=== PATIENT | male | born 1955 | race Caucasian/White ===

== ENCOUNTER 2019-06-24 15:57 | Inpatient (IN) | payer BC ==
[2019-06-24 17:33] LABS: ABSOLUTE BASOPHILS # (AUTO) 0.1 10^3/uL (0.0-0.2); ABSOLUTE LYMPHOCYTES (AUTO) 2.2 10^3/uL (0.5-4.7); ABSOLUTE MONOCYTES (AUTO) 1.2 10^3/uL (0.1-1.4); ABSOLUTE NEUT (AUTO) 14.8 10^3/uL (1.7-8.2); BASOPHILS % (AUTO) 0.3 % (0-2); EOSINOPHILS % (AUTO) 0.2 % (0-6); HEMATOCRIT 33.1 % (37.9-51.0); HEMOGLOBIN 11.3 g/dL (13.5-17.0); LYMPHOCYTES % (AUTO) 11.8 % (13-45); MEAN CORPUSCULAR HEMOGLOBIN 30.6 pg (27.0-33.4); MEAN CORPUSCULAR HGB CONC 34.1 g/dL (32.0-36.0); MEAN CORPUSCULAR VOLUME 90 fl (80-97); MONOCYTES % (AUTO) 6.7 % (3-13); PLATELET COUNT 206 10^3/uL (150-450); RED BLOOD COUNT 3.68 10^6/uL (4.35-5.55); RED CELL DISTRIBUTION WIDTH 14.2 % (11.5-14.0); TOTAL CELLS COUNTED % (AUTO) 100 %; WHITE BLOOD COUNT 18.3 10^3/uL (4.0-10.5)
[2019-06-24 17:34] LABS: VENOUS BLOOD BASE EXCESS -1.4 mmol/L; VENOUS BLOOD HCO3 20.4 mmol/L (20-32); VENOUS BLOOD PCO2 29.6 mmHg (35-63); VENOUS BLOOD PH 7.46 (7.30-7.42)
[2019-06-24 17:39] LABS: PROTHROMBIN TIME 16.3 SEC (11.4-15.4)
[2019-06-24 17:57] LABS: ALBUMIN 3.6 g/dL (3.5-5.0); ALKALINE PHOSPHATASE 97 U/L (38-126); ANION GAP 10 (5-19); ASPARTATE AMINO TRANSFERASE 21 U/L (17-59); BILIRUBIN,DIRECT 0.3 mg/dL (0.0-0.4); BILIRUBIN,TOTAL 2.1 mg/dL (0.2-1.3); BLOOD UREA NITROGEN 9 mg/dL (7-20); CARBON DIOXIDE 22 mmol/L (22-30); CHLORIDE 98 mmol/L (98-107); GLUCOSE 196 mg/dL (75-110); POTASSIUM 4.1 mmol/L (3.6-5.0); TOTAL PROTEIN 6.8 g/dL (6.3-8.2)
--- NOTE | 2019-06-24 18:50 | ER Document Report ---
ED General - General Chief Complaint: Urinary Problem Stated Complaint: URINARY PROBLEM Time Seen by Provider: 06/24/19 18:39 TRAVEL OUTSIDE OF THE [place] IN LAST 30 DAYS: No - HPI Notes: Patient presents with 3 days of burning with urination and developed fever. He went to his primary care doctor Dr. Vivas and was told to come to the emergency department. Denies any chest pain cough congestion abdominal pain or flank pain at this time. Denies any testicular pain. He is on Eliquis for A. fib - Related Data Allergies/Adverse Reactions: Penicillins Allergy (Unknown, Verified 05/25/18 07:47) Past Medical History - Social History Smoking Status: Unknown if Ever Smoked Family History: Reviewed & Not Pertinent - Past Medical History Cardiac Medical History: Denies: Hx Coronary Artery Disease, Hx Heart Attack, Hx Hypertension Pulmonary Medical History: Reports: Hx COPD Denies: Hx Asthma, Hx Bronchitis, Hx Pneumonia, Hx Tuberculosis Neurological Medical History: Denies: Hx Cerebrovascular Accident, Hx Seizures GI Medical History: Reports: Hx Gastroesophageal Reflux Disease, Hx Hiatal Hernia Musculoskeletal Medical History: Reports Hx Arthritis Psychiatric Medical History: Reports: Hx Depression Past Surgical History: Denies: Hx Appendectomy, Hx Bowel Surgery, Hx Cholecystectomy, Hx Coronary Artery Bypass Graft, Hx Gastric Bypass Surgery, Hx Herniorrhaphy, Hx Pacemaker, Hx Tonsillectomy - Immunizations Hx Diphtheria, Pertussis, Tetanus Vaccination: No Review of Systems - Review of Systems Constitutional: No symptoms reported EENT: No symptoms reported Cardiovascular: No symptoms reported Respiratory: No symptoms reported Gastrointestinal: No symptoms reported Genitourinary: See HPI Male Genitourinary: No symptoms reported Musculoskeletal: No symptoms reported Skin: No symptoms reported Hematologic/Lymphatic: No symptoms reported Neurological/Psychological: No symptoms reported Physical Exam - Vital signs Vitals: Resp 06/24/19 17:10 - General General appearance: Appears well, Alert - HEENT Head: Normocephalic, Atraumatic - Respiratory Respiratory status: No respiratory distress Chest status: Nontender Breath sounds: Normal Chest palpation: Normal - Cardiovascular Rhythm: Irregularly irregular, Tachycardia Heart sounds: Normal auscultation Murmur: No - Abdominal Inspection: Normal Distension: No distension Bowel sounds: Normal Tenderness: Nontender - Back Back: Normal. No: CVA tenderness - Extremities General upper extremity: Normal inspection, Normal ROM General lower extremity: Normal inspection, Normal ROM Course - Re-evaluation Re-evalutation: 06/24/19 19:44 Patient found to have urine indicative of urinary tract infection that combined with leukocytosis and fever patient has pyelonephritis ceftriaxone started in the emergency department due to his history of A. fib in rapid heart rate in the emergency department will be admitted for observation - Vital Signs Vital signs: Temp Pulse Resp BP Pulse Ox 99.4 F 20 125/83 95 06/24/19 17:16 06/24/19 18:01 06/24/19 19:01 06/24/19 19:01 - Laboratory Result Diagrams: 06/24/19 17:00 06/24/19 17:00 Laboratory results interpreted by me: 06/24/19 06/24/19 06/24/19 17:00 17:00 17:00 WBC 18.3 H RBC 3.68 L Hgb 11.3 L Hct 33.1 L RDW 14.2 H Lymph % (Auto) 11.8 L Absolute Neuts (auto) 14.8 H Seg Neutrophils % 81.0 H PT 16.3 H VBG pH VBG pCO2 Sodium 130.0 L Glucose 196 H Total Bilirubin 2.1 H Urine Blood Urine Urobilinogen Ur Leukocyte Esterase 06/24/19 06/24/19 17:00 18:50 WBC RBC Hgb Hct RDW Lymph % (Auto) Absolute Neuts (auto) Seg Neutrophils % PT VBG pH 7.46 H VBG pCO2 29.6 L Sodium Glucose Total Bilirubin Urine Blood MODERATE H Urine Urobilinogen 2.0 H Ur Leukocyte Esterase LARGE H Discharge - Discharge Clinical Impression: Pyelonephritis Condition: Good Disposition: ADMITTED OBSERVATION Admitting Provider: Jenifer (Hospitalist) Unit Admitted: Telemetry
[2019-06-24] MEDS ORDERED: ACETAMINOPHEN 325 MG TABLET PO ONE (18:51)
[2019-06-24 19:14] LABS: APPEARANCE,URINE SLIGHTLY-CLOUDY; BILIRUBIN,URINE NEGATIVE (NEGATIVE); COLOR,URINE YELLOW; GLUCOSE, URINE NEGATIVE (NEGATIVE); KETONES,URINE NEGATIVE (NEGATIVE); LEUKOCYTE ESTERASE,URINE LARGE (NEGATIVE); NITRITE,URINE NEGATIVE (NEGATIVE); PROTEIN,URINE NEGATIVE (NEGATIVE); URINE SPECIFIC GRAVITY 1.008
[2019-06-24] MEDS ORDERED: CEFTRIAXONE 1 GM/D5W RTU 1 GM/50 ML RTUPB IV ONE (20:30)
[2019-06-24] MEDS ORDERED: MAG HYDROX/AL HYDROX/SIMETH SUSP 30 ML UDCUP PO PRN (20:40)
[2019-06-24] MEDS ORDERED: ZOLPIDEM TARTRATE 5 MG TABLET PO PRN (20:40)
[2019-06-24] MEDS ORDERED: LEVALBUTEROL HCL NEB 0.63 MG/3 ML AMPUL NEB PRN (20:40)
[2019-06-24] MEDS ORDERED: ONDANSETRON HCL INJ/PF 4 MG/2 ML SDV IV PRN (20:40)
[2019-06-24] MEDS ORDERED: MAGNESIUM HYDROXIDE SUSP 30 ML UDCUP PO PRN (20:40)
[2019-06-24] MEDS ORDERED: NALBUPHINE HCL INJ 10 MG/1 ML AMPULE IV PRN ×3 (20:44→20:48)
--- NOTE | 2019-06-24 23:13 | EKG REPORT ---
SEVERITY:- ABNORMAL ECG - ATRIAL FIBRILLATION, V-RATE 95-150 BORDERLINE PROLONGED QT INTERVAL : Confirmed by: Niranjan Alicea MD 24-Jun-2019 23:13:00
[2019-06-24] MEDS: RINGERS SOLUTION,LACTATED 1,000 ML IV PRN (23:42)
[2019-06-24] MEDS ORDERED: METOPROLOL TARTRATE 25 MG TABLET PO ONE (23:45)
[2019-06-24] MEDS ORDERED: METOPROLOL TARTRATE 25 MG TABLET ONE (23:54)
[2019-06-24] MEDS: ACETAMINOPHEN 325 MG TABLET PO PRN (23:56)
[2019-06-25] MEDS: LEVALBUTEROL HCL NEB 1.25 MG/3 ML AMPUL NEB SCH ×3 (00:01→15:43)
[2019-06-25] MEDS: IPRATROPIUM BROMIDE 0.02% NEB 0.5 MG/2.5 ML AMPUL NEB SCH ×3 (00:01→15:43)
[2019-06-25] MEDS ORDERED: METOPROLOL TARTRATE 25 MG TABLET ONE (03:21)
[2019-06-25] MEDS: RINGERS SOLUTION,LACTATED 1,000 ML IV PRN (03:36)
--- NOTE | 2019-06-25 03:46 | PDOC H&P ---
History of Present Illness Admission Date/PCP: 06/24/19 19:55 ANKIT ATKINS MD Patient complains of: Dysuria History of Present Illness: JEWEL BAIN is a 63 year old male who presented to the emergency room with a 3- day history of dysuria. He admits having burning with urination associated with urinary urgency and frequency for the last 3 days and acknowledges that today he developed an accompanying subjective fever with chills. He saw his primary care provider Dr. Cory Atkins today for evaluation and was sent to the emergency room for treatment. He denies other associated or accompanying signs and symptoms. He denies prior similar episodes. He has not identified any aggravating or ameliorating factors for his dysuria. In the emergency room he was found to have pyuria with an elevated white blood count of 18,300 and a mild tachycardia with a temperature of 99.4 F. He was given an initial dose of Rocephin 1 g IV in the emergency room and blood and urine cultures are currently pending. Patient was subsequently admitted to the hospital for further evaluation and treatment. Past Medical History Cardiac Medical History: Reports: Atrial Fibrillation Denies: Coronary Artery Disease, Myocardial Infarction, Hypertension Pulmonary Medical History: Reports: Chronic Obstructive Pulmonary Disease (COPD) Denies: Asthma, Bronchitis, Pneumonia, Tuberculosis EENT Medical History: Denies: Cataracts, Ears - Hearing aids Neurological Medical History: Denies: Hemorrhagic CVA, Ischemic CVA, Seizures Endocrine Medical History: Reports: Obesity Denies: Diabetes Mellitus Type 1, Diabetes Mellitus Type 2, Hyperthyroidism, Hypothyroidism Renal/ Medical History: Denies: Chronic Kidney Disease, Nephrolithiasis Malignancy Medical History: Reports: None GI Medical History: Reports: Gastroesophageal Reflux Disease, Hiatal Hernia Denies: Cirrhosis, Hepatitis Musculoskeltal Medical History: Reports: Arthritis Denies: Gout Skin Medical History: Denies: Eczema, Psoriasis Psychiatric Medical History: Reports: Depression, Substance Abuse Denies: Alcohol Dependency, Tobacco Dependency Traumatic Medical History: Reports: None Hematology: Reports: Anemia Denies: Bleeding Tendencies Infectious Medical History: Reports: None Past Surgical History Past Surgical History: Reports: None Social History Information Source: Patient Lives with: Alone Smoking Status: Former Smoker Electronic Cigarette use?: No Frequency of Alcohol Use: Occasional Hx Recreational Drug Use: Yes Drugs: Cocaine, Marijuana Hx Prescription Drug Abuse: No - Advance Directive Resuscitation Status: Full Code Surrogate healthcare decision maker:: Mandie Britton Family History Parental Family History Reviewed: Yes Children Family History Reviewed: No Sibling(s) Family History Reviewed.: Yes Medication/Allergy Home Medications: Apixaban [Eliquis 5 mg Tablet] 5 mg PO Q12 06/24/19 Esomeprazole Magnesium 40 mg PO DAILY 06/24/19 Lisinopril [Prinivil 2.5 mg Tablet] 2.5 mg PO DAILY 06/24/19 Metoprolol Tartrate [Lopressor 25 mg Tablet] 25 mg PO Q12 06/24/19 Tamsulosin HCl [Flomax 0.4 mg Cap.sr] 0.4 mg PO QPM 06/24/19 Umeclidinium Brm/Vilanterol Tr [Anoro Ellipta 62.5-25 Mcg INH] 1 puff IH DAILY 06/24/19 Allergies/Adverse Reactions: Penicillins Allergy (Unknown, Verified 05/25/18 07:47) Review of Systems Constitutional: PRESENT: as per HPI, chills, fever(s) Eyes: ABSENT: visual disturbances, other - Eye pain Ears: ABSENT: hearing changes, other - Ear pain Nose, Mouth, and Throat: ABSENT: mouth pain, sore throat Cardiovascular: ABSENT: chest pain, palpitations Respiratory: ABSENT: cough, dyspnea Gastrointestinal: ABSENT: abdominal pain, constipation, diarrhea, nausea, vomiting Genitourinary: PRESENT: as per HPI, dysuria, other - Urinary frequency and urgency. ABSENT: hematuria Musculoskeletal: ABSENT: back pain, joint swelling, muscle weakness Integumentary: ABSENT: pruritus, rash Neurological: ABSENT: confusion, convulsions, focal weakness, memory loss, syncope Psychiatric: ABSENT: anxiety, depression Endocrine: ABSENT: cold intolerance, heat intolerance Hematologic/Lymphatic: ABSENT: easy bleeding, easy bruising Allergic/Immunologic: ABSENT: seasonal rhinorrhea Physical Exam Vital Signs: Temp Pulse Resp BP Pulse Ox 99.4 F 20 125/83 95 06/24/19 17:16 06/24/19 18:01 06/24/19 19:01 06/24/19 19:01 Intake & Output 06/22/19 06/23/19 06/24/19 23:59 23:59 23:59 Weight 113.852 kg General appearance: PRESENT: no acute distress, cooperative, obese Head exam: PRESENT: atraumatic, normocephalic Eye exam: PRESENT: conjunctiva pink. ABSENT: conjunctival injection, scleral icterus Ear exam: PRESENT: normal external ear exam. ABSENT: bleeding, drainage Mouth exam: PRESENT: dry mucosa, neck supple Neck exam: ABSENT: thyromegaly, tracheal deviation Respiratory exam: PRESENT: clear to auscultation evelyn, symmetrical, unlabored Cardiovascular exam: PRESENT: irregular rhythm - Irregularly irregular rate and rhythm. ABSENT: clicks, gallop, rubs Pulses: PRESENT: normal radial pulses, normal dorsalis pedis pul Vascular exam: PRESENT: normal capillary refill. ABSENT: pallor GI/Abdominal exam: PRESENT: normal bowel sounds, soft Rectal exam: PRESENT: deferred Extremities exam: ABSENT: joint swelling, pedal edema Musculoskeletal exam: PRESENT: full ROM, normal inspection Neurological exam: PRESENT: alert, oriented to person, oriented to place, oriented to time, oriented to situation, CN II-XII grossly intact. ABSENT: motor sensory deficit Psychiatric exam: PRESENT: appropriate affect, normal mood Skin exam: PRESENT: dry, intact, warm. ABSENT: jaundice, rash, urticaria Results Laboratory Results: 06/24/19 17:00 06/24/19 17:00 06/24/19 06/24/19 06/24/19 17:00 17:00 17:00 WBC 18.3 H RBC 3.68 L Hgb 11.3 L Hct 33.1 L MCV 90 MCH 30.6 MCHC 34.1 RDW 14.2 H Plt Count 206 Seg Neutrophils % 81.0 H VBG pH VBG pCO2 VBG HCO3 VBG Base Excess Sodium 130.0 L Potassium 4.1 Chloride 98 Carbon Dioxide 22 Anion Gap 10 BUN 9 Creatinine 0.71 Est GFR ( Amer) > 60 Glucose 196 H Lactic Acid 2.0 Calcium 9.0 Total Bilirubin 2.1 H AST 21 Alkaline Phosphatase 97 Total Protein 6.8 Albumin 3.6 Urine Color Urine Appearance Urine pH Ur Specific [place] Urine Protein Urine Glucose (UA) Urine Ketones Urine Blood Urine Nitrite Ur Leukocyte Esterase Urine WBC (Auto) Urine RBC (Auto) 06/24/19 06/24/19 17:00 18:50 WBC RBC Hgb Hct MCV MCH MCHC RDW Plt Count Seg Neutrophils % VBG pH 7.46 H VBG pCO2 29.6 L VBG HCO3 20.4 VBG Base Excess -1.4 Sodium Potassium Chloride Carbon Dioxide Anion Gap BUN Creatinine Est GFR ( Amer) Glucose Lactic Acid Calcium Total Bilirubin AST Alkaline Phosphatase Total Protein Albumin Urine Color YELLOW Urine Appearance SLIGHTLY-CLOUDY Urine pH 6.0 Ur Specific [place] 1.008 Urine Protein NEGATIVE Urine Glucose (UA) NEGATIVE Urine Ketones NEGATIVE Urine Blood MODERATE H Urine Nitrite NEGATIVE Ur Leukocyte Esterase LARGE H Urine WBC (Auto) 64 Urine RBC (Auto) 2 Assessment and Plan - Diagnosis (1) Urinary tract infection Qualifiers: Urinary tract infection type: site unspecified Hematuria presence: without hematuria Qualified Code(s): N39.0 - Urinary tract infection, site not specified Is this a current diagnosis for this admission?: Yes (2) Dysuria Is this a current diagnosis for this admission?: Yes (3) Fever and chills Is this a current diagnosis for this admission?: Yes (4) Major depression, chronic Is this a current diagnosis for this admission?: Yes (5) Chronic anticoagulation Is this a current diagnosis for this admission?: Yes (6) Chronic atrial fibrillation Is this a current diagnosis for this admission?: Yes - Plan Summary Summary: Patient is admitted to the hospital for IV antibiotic therapy initially with Rocephin 1 g IV daily. Blood and urine cultures are pending at this time. CBCs and metabolic profiles with magnesium levels will be followed as appropriate. Patient will be continued on his usual medications for treatment of his chronic depression, atrial fibrillation and associated stroke risk. His urinary symptoms will be treated with Pyridium and his fever will be treated with Tylenol on an as-needed basis. Any pain he might develop will be treated with Nubain 5 to 10 mg IV every 3 hours on an as-needed basis using a sliding pain scale. - Time Time Spent with patient: 25-34 minutes Medications reviewed and adjusted accordingly: Yes Anticipated discharge: Home - Inpatient Certification Based on my medical assessment, after consideration of the patient's comorbidities, presenting symptoms, or acuity I expect that the services needed warrant INPATIENT care.: Yes I certify that my determination is in accordance with my understanding of [facility]'s requirements for reasonable and necessary INPATIENT services [42 CFR 412.3e].: Yes Medical Necessity: Need Close Monitoring Due to Risk of Patient Decompensation, Need For IV Fluids, Need For Continuous Telemetry Monitoring, Need for IV Antibiotics, Risk of Complication if Not Cared For in Hospital, Risk of Diagnosis Which Will Require Inpatient Eval/Care/Monitoring
[2019-06-25] MEDS ORDERED: METOPROLOL TARTRATE 25 MG TABLET PO ONE (04:00)
[2019-06-25] MEDS ORDERED: PHENAZOPYRIDINE HCL 100 MG TABLET PO ONE (04:00)
[2019-06-25 06:16] LABS: HEMATOCRIT 30.9 % (37.9-51.0); HEMOGLOBIN 10.7 g/dL (13.5-17.0); MEAN CORPUSCULAR HGB CONC 34.5 g/dL (32.0-36.0); MEAN CORPUSCULAR VOLUME 90 fl (80-97); PLATELET COUNT 178 10^3/uL (150-450); RED BLOOD COUNT 3.44 10^6/uL (4.35-5.55); RED CELL DISTRIBUTION WIDTH 14.2 % (11.5-14.0)
[2019-06-25 06:57] LABS: ANION GAP 6 (5-19); BLOOD UREA NITROGEN 11 mg/dL (7-20); CALCIUM 8.7 mg/dL (8.4-10.2); CARBON DIOXIDE 26 mmol/L (22-30); CHLORIDE 99 mmol/L (98-107); GLUCOSE 269 mg/dL (75-110); POTASSIUM 4.3 mmol/L (3.6-5.0)
[2019-06-25] MEDS: BUDESONIDE NEB 0.5 MG/2 ML AMPUL NEB SCH ×2 (07:43→20:02)
[2019-06-25] MEDS: DOCUSATE SODIUM 100 MG CAPSULE PO SCH ×2 (10:21→17:11)
[2019-06-25] MEDS: METOPROLOL TARTRATE 25 MG TABLET PO SCH ×2 (10:21→22:07)
[2019-06-25] MEDS: PANTOPRAZOLE SODIUM 40 MG TABLET.DR PO SCH ×2 (10:21→17:11)
[2019-06-25] MEDS: APIXABAN 5 MG TABLET PO SCH ×2 (10:21→17:11)
[2019-06-25] MEDS: LISINOPRIL 5 MG TABLET PO SCH (10:21)
[2019-06-25] MEDS: CEFTRIAXONE 1 GM/D5W RTU 1 GM/50 ML RTUPB IV SCH (10:22)
--- NOTE | 2019-06-25 12:49 | PDOC PROGRESS REPORT ---
Subjective Progress Note for:: 06/25/19 Subjective:: JEWEL BAIN is a 63 year old male who presented to the emergency room with a 3- day history of dysuria. He admits having burning with urination associated with urinary urgency and frequency for the last 3 days and acknowledges that today he developed an accompanying subjective fever with chills. He saw his primary care provider Dr. Cory Richardson today for evaluation and was sent to the emergency room for treatment. He denies other associated or accompanying signs and symptoms. He denies prior similar episodes. He has not identified any aggravating or ameliorating factors for his dysuria. In the emergency room he was found to have pyuria with an elevated white blood count of 18,300 and a mild tachycardia with a temperature of 99.4 F. He was given an initial dose of Rocephin 1 g IV in the emergency room and blood and urine cultures are currently pending. Patient was subsequently admitted to the hospital for further evaluation and treatment. 06/25/2019. Afebrile, dysuria improved, denies any shortness of breath, chills, nausea, vomiting, diarrhea, constipation. Reason For Visit: URINARY TRACT INFECTION LEUKOCYTOSIS Physical Exam Vital Signs: Temp Pulse Resp BP Pulse Ox 99.5 F 95 16 125/74 94 06/25/19 00:00 06/25/19 07:43 06/25/19 07:43 06/25/19 00:00 06/25/19 07:43 Intake & Output 06/24/19 06/25/19 06/26/19 06:59 06:59 06:59 Intake Total 701 1050 Output Total 1000 Balance -299 1050 Weight 111 kg General appearance: PRESENT: no acute distress, obese, well-developed, well-no urished Head exam: PRESENT: atraumatic, normocephalic Eye exam: PRESENT: conjunctiva pink, EOMI, PERRLA. ABSENT: scleral icterus Ear exam: PRESENT: normal external ear exam Mouth exam: PRESENT: moist, tongue midline Neck exam: ABSENT: carotid bruit, JVD, lymphadenopathy, thyromegaly Respiratory exam: PRESENT: clear to auscultation evelyn. ABSENT: rales, rhonchi, wheezes Cardiovascular exam: PRESENT: RRR. ABSENT: diastolic murmur, rubs, systolic murmur Pulses: PRESENT: normal dorsalis pedis pul Vascular exam: PRESENT: normal capillary refill GI/Abdominal exam: PRESENT: normal bowel sounds, soft. ABSENT: distended, guarding, mass, organolmegaly, rebound, tenderness Rectal exam: PRESENT: deferred Extremities exam: PRESENT: full ROM. ABSENT: calf tenderness, clubbing, pedal edema Neurological exam: PRESENT: alert, awake, oriented to person, oriented to place, oriented to time, oriented to situation, CN II-XII grossly intact. ABSENT: motor sensory deficit Psychiatric exam: PRESENT: appropriate affect, normal mood. ABSENT: homicidal ideation, suicidal ideation Skin exam: PRESENT: dry, intact, warm. ABSENT: cyanosis, rash Results Laboratory Results: 06/25/19 05:57 06/25/19 05:57 06/24/19 06/24/19 06/24/19 17:00 17:00 17:00 WBC 18.3 H RBC 3.68 L Hgb 11.3 L Hct 33.1 L MCV 90 MCH 30.6 MCHC 34.1 RDW 14.2 H Plt Count 206 Seg Neutrophils % 81.0 H VBG pH VBG pCO2 VBG HCO3 VBG Base Excess Sodium 130.0 L Potassium 4.1 Chloride 98 Carbon Dioxide 22 Anion Gap 10 BUN 9 Creatinine 0.71 Est GFR ( Amer) > 60 Glucose 196 H Lactic Acid 2.0 Calcium 9.0 Magnesium Total Bilirubin 2.1 H AST 21 Alkaline Phosphatase 97 Total Protein 6.8 Albumin 3.6 TSH Urine Color Urine Appearance Urine pH Ur Specific [place] Urine Protein Urine Glucose (UA) Urine Ketones Urine Blood Urine Nitrite Ur Leukocyte Esterase Urine WBC (Auto) Urine RBC (Auto) 06/24/19 06/24/19 06/25/19 17:00 18:50 05:57 WBC 16.0 H RBC 3.44 L Hgb 10.7 L Hct 30.9 L MCV 90 MCH 31.0 MCHC 34.5 RDW 14.2 H Plt Count 178 Seg Neutrophils % VBG pH 7.46 H VBG pCO2 29.6 L VBG HCO3 20.4 VBG Base Excess -1.4 Sodium Potassium Chloride Carbon Dioxide Anion Gap BUN Creatinine Est GFR ( Amer) Glucose Lactic Acid Calcium Magnesium Total Bilirubin AST Alkaline Phosphatase Total Protein Albumin TSH Urine Color YELLOW Urine Appearance SLIGHTLY-CLOUDY Urine pH 6.0 Ur Specific [place] 1.008 Urine Protein NEGATIVE Urine Glucose (UA) NEGATIVE Urine Ketones NEGATIVE Urine Blood MODERATE H Urine Nitrite NEGATIVE Ur Leukocyte Esterase LARGE H Urine WBC (Auto) 64 Urine RBC (Auto) 2 06/25/19 06/25/19 05:57 05:57 WBC RBC Hgb Hct MCV MCH MCHC RDW Plt Count Seg Neutrophils % VBG pH VBG pCO2 VBG HCO3 VBG Base Excess Sodium 131.0 L Potassium 4.3 Chloride 99 Carbon Dioxide 26 Anion Gap 6 BUN 11 Creatinine 0.66 Est GFR ( Amer) > 60 Glucose 269 H Lactic Acid Calcium 8.7 Magnesium 1.7 Total Bilirubin AST Alkaline Phosphatase Total Protein Albumin TSH 1.03 Urine Color Urine Appearance Urine pH Ur Specific [place] Urine Protein Urine Glucose (UA) Urine Ketones Urine Blood Urine Nitrite Ur Leukocyte Esterase Urine WBC (Auto) Urine RBC (Auto) Assessment and Plan - Diagnosis (1) Atrial fibrillation Qualifiers: Atrial fibrillation type: longstanding persistent Qualified Code(s): I48.11 - Longstanding persistent atrial fibrillation Is this a current diagnosis for this admission?: Yes Plan: Rate controlled. Anticoagulated. Home meds of metoprolol and Eliquis. Continue metoprolol, continue Eliquis. Continue telemetry, monitor vitals, monitor for bleeding. Outpatient PCP and cardiology follow-up. (2) SIRS (systemic inflammatory response syndrome) Is this a current diagnosis for this admission?: Yes Plan: Resolved. Vitals WNL. Due to underlying UTI. With this by fever, leukocytosis, low platelets, elevated T bili. Treat underlying UTI. (3) Hypertension Is this a current diagnosis for this admission?: Yes Plan: Euvolemic. Normotensive. Takes metoprolol and lisinopril at home. Continue lisinopril, continue metoprolol. Adjustments needed. Outpatient PCP follow-up. (4) Obesity Qualifiers: Obesity classification: adult class 1 (BMI 30 - 34.9) Is this a current diagnosis for this admission?: Yes Plan: BMI 34.1. TSH WNL. We will check for A1c and lipid panel. Diet and lifestyle modification recommended. (5) COPD (chronic obstructive pulmonary disease) Is this a current diagnosis for this admission?: Yes Plan: Not acutely exacerbated. Not on home O2. Former smoker. Takes Trelegy Elilipta at home. Restart home meds. 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 (6) Urinary tract infection Qualifiers: Urinary tract infection type: site unspecified Hematuria presence: with hematuria Qualified Code(s): N39.0 - Urinary tract infection, site not specified; R31.9 - Hematuria, unspecified Is this a current diagnosis for this admission?: Yes Plan: Likely due to gram-negative rods including E. coli. Endorses history of BPH. Denies any history of recent instrumentation, abnormality or malignancy. Negative CVA tenderness. Likely acute cystitis. Day 2 IV antibiotics. Day 2 IV ceftriaxone. Cultures grew out gram-negative rods, pending sensitivity. Renal ultrasound to rule out any abnormality or pyelonephritis. (7) BPH (benign prostatic hyperplasia) Qualifiers: Lower urinary tract symptom presence: symptoms absent Qualified Code(s): N40.0 - Benign prostatic hyperplasia without lower urinary tract symptoms Is this a current diagnosis for this admission?: Yes Plan: Restart home meds. (8) Diabetes Qualifiers: Diabetes mellitus type: type 2 Is this a current diagnosis for this admission?: Yes (9) Hyperlipidemia Is this a current diagnosis for this admission?: Yes
[2019-06-25 13:21] LABS: CHOLESTEROL 137.58 mg/dL (0-200); TRIGLYCERIDES 131 mg/dL (<150)
[2019-06-25 13:36] LABS: DIRECT LDL 89 mg/dL (<100)
[2019-06-25] MEDS: PHENAZOPYRIDINE HCL 100 MG TABLET PO SCH ×2 (14:37→22:07)
--- NOTE | 2019-06-25 17:26 | RADIOLOGY REPORT (SQ) ---
EXAM DESCRIPTION: U/S RETROPERITON (RENAL/AORTA) COMPLETED DATE/TIME: 06/25/2019 4:37 pm REASON FOR STUDY: r/o pyelonephritis COMPARISON: None. TECHNIQUE: Dynamic and static grayscale images acquired of the kidneys and bladder and recorded on P ACS. Additional selected color Doppler and spectral images recorded. LIMITATIONS: None. FINDINGS: RIGHT KIDNEY: The right kidney measures 14.1 x 5.4 x 7.0 cm, normal size. Normal echogeni city. No solid or suspicious masses. No hydronephrosis. No calcifications. LEFT KIDNEY: The left kidney measures 12.3 x 7.6 x 6.4 cm, normal size. Normal echogenicity. No yenifer d or suspicious masses. No hydronephrosis. No calcifications. BLADDER: The urinary bladder is incompletely distended. OTHER FINDINGS: No other significant finding. IMPRESSION: 1. NORMAL RENAL ULTRASOUND. TECHNICAL DOCUMENTATION: JOB ID: [id number] [email or web address] Rights Reserved Reading location - IP/workstation name: [email or web address]
[2019-06-25] MEDS ORDERED: TAMSULOSIN HCL 0.4 MG CAP.SR.24H PO SCH (18:00)
[2019-06-25] MEDS: ACETAMINOPHEN 325 MG TABLET PO PRN (20:23)
[2019-06-25] MEDS ORDERED: APIXABAN 5 MG TABLET PO SCH (22:00)
[2019-06-26] MEDS: PANTOPRAZOLE SODIUM 40 MG TABLET.DR PO SCH (05:00)
[2019-06-26] MEDS: PHENAZOPYRIDINE HCL 100 MG TABLET PO SCH (05:00)
[2019-06-26 05:07] LABS: HEMATOCRIT 29.7 % (37.9-51.0); HEMOGLOBIN 10.3 g/dL (13.5-17.0); MEAN CORPUSCULAR HEMOGLOBIN 30.9 pg (27.0-33.4); MEAN CORPUSCULAR HGB CONC 34.5 g/dL (32.0-36.0); MEAN CORPUSCULAR VOLUME 89 fl (80-97); PLATELET COUNT 166 10^3/uL (150-450); RED BLOOD COUNT 3.33 10^6/uL (4.35-5.55); RED CELL DISTRIBUTION WIDTH 13.7 % (11.5-14.0)
[2019-06-26 05:29] LABS: ALBUMIN 3.1 g/dL (3.5-5.0); ALKALINE PHOSPHATASE 84 U/L (38-126); ANION GAP 7 (5-19); ASPARTATE AMINO TRANSFERASE 18 U/L (17-59); BILIRUBIN,DIRECT 0.1 mg/dL (0.0-0.4); BILIRUBIN,TOTAL 0.6 mg/dL (0.2-1.3); BLOOD UREA NITROGEN 11 mg/dL (7-20); CALCIUM 8.7 mg/dL (8.4-10.2); CARBON DIOXIDE 28 mmol/L (22-30); CHLORIDE 103 mmol/L (98-107); GLUCOSE 244 mg/dL (75-110); TOTAL PROTEIN 6.1 g/dL (6.3-8.2)
[2019-06-26] MEDS: IPRATROPIUM BROMIDE 0.02% NEB 0.5 MG/2.5 ML AMPUL NEB SCH ×2 (08:32)
[2019-06-26] MEDS: LEVALBUTEROL HCL NEB 1.25 MG/3 ML AMPUL NEB SCH ×2 (08:32)
[2019-06-26] MEDS: BUDESONIDE NEB 0.5 MG/2 ML AMPUL NEB SCH (08:32)
[2019-06-26] MEDS: DOCUSATE SODIUM 100 MG CAPSULE PO SCH (09:59)
[2019-06-26] MEDS: APIXABAN 5 MG TABLET PO SCH (09:59)
[2019-06-26] MEDS: CEFTRIAXONE 1 GM/D5W RTU 1 GM/50 ML RTUPB IV SCH (09:59)
[2019-06-26] MEDS: LISINOPRIL 5 MG TABLET PO SCH (09:59)
[2019-06-26] MEDS ORDERED: METOPROLOL SUCCINATE 25 MG TAB.SR.24H PO SCH (10:00)
[2019-06-26] MEDS ORDERED: (PENDING PHARMACY ID) (Umeclidinium Brm/Vilanterol Tr [Anoro Ellipta 62.5-25 Mcg Inh] 1 PU IH SCH (10:00)
[2019-06-26 10:27] LABS: APPEARANCE,URINE CLEAR; BILIRUBIN,URINE NEGATIVE (NEGATIVE); GLUCOSE, URINE 150 mg/dL (NEGATIVE); KETONES,URINE NEGATIVE (NEGATIVE); LEUKOCYTE ESTERASE,URINE NEGATIVE (NEGATIVE); NITRITE,URINE POSITIVE (NEGATIVE); PROTEIN,URINE NEGATIVE (NEGATIVE); URINE SPECIFIC GRAVITY 1.017
[2019-06-26 10:28] LABS: COLOR,URINE ORANGE
[2019-06-26 12:47] VITALS: BP 114/76
--- NOTE | 2019-06-27 14:31 | PDOC DISCHARGE SUMMARY ---
Impression - Admit/DC Date/PCP Admission Date/Primary Care Provider: 06/24/19 20:40 ANKIT ATKINS MD Discharge Date: 06/26/19 - Discharge Diagnosis (1) Atrial fibrillation Is this a current diagnosis for this admission?: Yes (2) SIRS (systemic inflammatory response syndrome) Is this a current diagnosis for this admission?: Yes (3) Hypertension Is this a current diagnosis for this admission?: Yes (4) Obesity Is this a current diagnosis for this admission?: Yes (5) COPD (chronic obstructive pulmonary disease) Is this a current diagnosis for this admission?: Yes (6) Urinary tract infection Is this a current diagnosis for this admission?: Yes (7) BPH (benign prostatic hyperplasia) Is this a current diagnosis for this admission?: Yes - Additional Information Resuscitation Status: Full Code Discharge Diet: Diabetic Discharge Activity: Activity As Tolerated Referrals: JC ONTIVEROS MD [[facility]] - ANKIT ATKINS MD [Primary Care Provider] - Follow up as needed Prescriptions: Rosuvastatin Calcium [Crestor 10 mg Tablet] 10 mg PO QHS 30 Days #30 tablet Levofloxacin [Levaquin 500 mg Tablet] 500 mg PO DAILY 4 Days #4 tablet Metformin HCl 500 mg PO BID 30 Days #60 tablet Metoprolol Succinate [Toprol Xl 25 mg Tab.sr] 25 mg PO DAILY 30 Days #30 tab.sr.24h Home Medications: Apixaban [Eliquis 5 mg Tablet] 5 mg PO Q12 06/24/19 Esomeprazole Magnesium 40 mg PO DAILY 06/24/19 Lisinopril [Prinivil 2.5 mg Tablet] 2.5 mg PO DAILY 06/24/19 Tamsulosin HCl [Flomax 0.4 mg Cap.sr] 0.4 mg PO QPM 06/24/19 Umeclidinium Brm/Vilanterol Tr [Anoro Ellipta 62.5-25 Mcg INH] 1 puff IH DAILY 06/24/19 Levofloxacin [Levaquin 500 mg Tablet] 500 mg PO DAILY 4 Days #4 tablet 06/26/19 Metformin HCl 500 mg PO BID 30 Days #60 tablet 06/26/19 Metoprolol Succinate [Toprol Xl 25 mg Tab.sr] 25 mg PO DAILY 30 Days #30 tab.sr.24h 06/26/19 Rosuvastatin Calcium [Crestor 10 mg Tablet] 10 mg PO QHS 30 Days #30 tablet 06/26/19 History of Present Illiness History of Present Illness: JEWEL BAIN is a 63 year old male who presented to the emergency room with a 3- day history of dysuria. He admits having burning with urination associated with urinary urgency and frequency for the last 3 days and acknowledges that today he developed an accompanying subjective fever with chills. He saw his primary care provider Dr. Cory Atkins today for evaluation and was sent to the emergency room for treatment. He denies other associated or accompanying signs and symptoms. He denies prior similar episodes. He has not identified any aggravating or ameliorating factors for his dysuria. In the emergency room he was found to have pyuria with an elevated white blood count of 18,300 and a mild tachycardia with a temperature of 99.4 F. He was given an initial dose of Rocephin 1 g IV in the emergency room and blood and urine cultures are currently pending. Patient was subsequently admitted to the hospital for further evaluation and treatment. Hospital Course Hospital Course: (1) Atrial fibrillation Rate controlled. Anticoagulated. Home meds of metoprolol and Eliquis. Continue metoprolol, continue Eliquis. Continue telemetry, monitor vitals, monitor for bleeding. Outpatient PCP and cardiology follow-up. (2) SIRS (systemic inflammatory response syndrome) Resolved. Vitals WNL. Due to underlying UTI. Evidenced by by fever, leukocytosis, low platelets, elevated T bili. (3) Hypertension Euvolemic. Normotensive. Takes metoprolol and lisinopril at home. Continued lisinopril, continue metoprolol. Adjustments needed. Outpatient PCP follow-up. (4) Obesity BMI 34.1. TSH WNL. We will check for A1c and lipid panel. Diet and lifestyle modification recommended. (5) COPD (chronic obstructive pulmonary disease) Not acutely exacerbated. Not on home O2. Former smoker. Takes Trelegy Elilipta at home. Restart home meds. 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 (6) Urinary tract infection Likely due to gram-negative rods including E. coli. Endorses history of BPH. Denies any history of recent instrumentation, abnormality or malignancy. Negative CVA tenderness. Likely acute cystitis. Received 3 days of a ceftriaxone. Discharged on 3 days of levofloxacin. Cultures grew out gram-negative rods, pending sensitivity. Renal ultrasound to rule out any abnormality or pyelonephritis. (7) BPH (benign prostatic hyperplasia) Restart home meds. (8) Diabetes Hemoglobin A1c 7.7. Patient aware of his diabetes and used to take metformin and was stopped for some reason he is not aware of. Was discharged on metformin 500 mg p.o. twice daily and follow-up with PCP. (9) Hyperlipidemia Started on low intensity statins. Follow-up with evaluation of LFTs. Physical Exam Vital Signs: Temp Pulse Resp BP Pulse Ox 98.0 F 102 H 18 114/76 98 06/26/19 12:51 06/26/19 12:51 06/26/19 12:51 06/26/19 12:51 06/26/19 12:51 Intake & Output 06/26/19 06/27/19 06/28/19 07:59 06:59 06:59 Intake Total Output Total Balance Weight General appearance: PRESENT: obese Head exam: PRESENT: atraumatic, normocephalic Eye exam: PRESENT: conjunctiva pink, EOMI, PERRLA. ABSENT: scleral icterus Ear exam: PRESENT: normal external ear exam Mouth exam: PRESENT: moist, tongue midline Neck exam: ABSENT: carotid bruit, JVD, lymphadenopathy, thyromegaly Respiratory exam: PRESENT: clear to auscultation evelyn. ABSENT: rales, rhonchi, wheezes Cardiovascular exam: PRESENT: RRR. ABSENT: diastolic murmur, rubs, systolic murmur Pulses: PRESENT: normal dorsalis pedis pul Vascular exam: PRESENT: normal capillary refill GI/Abdominal exam: PRESENT: normal bowel sounds, soft. ABSENT: distended, guarding, mass, organolmegaly, rebound, tenderness Rectal exam: PRESENT: deferred Extremities exam: PRESENT: full ROM. ABSENT: calf tenderness, clubbing, pedal edema Neurological exam: PRESENT: alert, awake, oriented to person, oriented to place, oriented to time, oriented to situation, CN II-XII grossly intact. ABSENT: motor sensory deficit Psychiatric exam: PRESENT: appropriate affect, normal mood. ABSENT: homicidal ideation, suicidal ideation Skin exam: PRESENT: dry, intact, warm. ABSENT: cyanosis, rash Results Laboratory Results: WBC 7.0 10^3/uL (4.0-10.5) 06/26/19 04:54 RBC 3.33 10^6/uL (4.35-5.55) L 06/26/19 04:54 Hgb 10.3 g/dL (13.5-17.0) L 06/26/19 04:54 Hct 29.7 % (37.9-51.0) L 06/26/19 04:54 MCV 89 fl (80-97) 06/26/19 04:54 MCH 30.9 pg (27.0-33.4) 06/26/19 04:54 MCHC 34.5 g/dL (32.0-36.0) 06/26/19 04:54 RDW 13.7 % (11.5-14.0) 06/26/19 04:54 Plt Count 166 10^3/uL (150-450) 06/26/19 04:54 Lymph % (Auto) 11.8 % (13-45) L 06/24/19 17:00 [place] % (Auto) 6.7 % (3-13) 06/24/19 17:00 Eos % (Auto) 0.2 % (0-6) 06/24/19 17:00 Baso % (Auto) 0.3 % (0-2) 06/24/19 17:00 Absolute Neuts (auto) 14.8 10^3/uL (1.7-8.2) H 06/24/19 17:00 Absolute Lymphs (auto) 2.2 10^3/uL (0.5-4.7) 06/24/19 17:00 Absolute Monos (auto) 1.2 10^3/uL (0.1-1.4) 06/24/19 17:00 Absolute Eos (auto) 0.0 10^3/uL (0.0-0.6) 06/24/19 17:00 Absolute Basos (auto) 0.1 10^3/uL (0.0-0.2) 06/24/19 17:00 Seg Neutrophils % 81.0 % (42-78) H 06/24/19 17:00 PT 16.3 SEC (11.4-15.4) H 06/24/19 17:00 INR 1.30 06/24/19 17:00 VBG pH 7.46 (7.30-7.42) H 06/24/19 17:00 VBG pCO2 29.6 mmHg (35-63) L 06/24/19 17:00 VBG HCO3 20.4 mmol/L (20-32) 06/24/19 17:00 VBG Base Excess -1.4 mmol/L 06/24/19 17:00 Sodium 138.1 mmol/L (137-145) 06/26/19 04:54 Potassium 4.0 mmol/L (3.6-5.0) 06/26/19 04:54 Chloride 103 mmol/L (98-107) 06/26/19 04:54 Carbon Dioxide 28 mmol/L (22-30) 06/26/19 04:54 Anion Gap 7 (5-19) 06/26/19 04:54 BUN 11 mg/dL (7-20) 06/26/19 04:54 Creatinine 0.69 mg/dL (0.52-1.25) 06/26/19 04:54 Est GFR ( Amer) > 60 (>60) 06/26/19 04:54 Est GFR (MDRD) Non-Af > 60 (>60) 06/26/19 04:54 Glucose 244 mg/dL (75-110) H 06/26/19 04:54 Hemoglobin A1c % 7.3 % (4.7-6.0) H 06/25/19 05:57 Lactic Acid 2.0 mmol/L (0.7-2.1) 06/24/19 17:00 Calcium 8.7 mg/dL (8.4-10.2) 06/26/19 04:54 Magnesium 1.7 mg/dL (1.6-2.3) 06/25/19 05:57 Total Bilirubin 0.6 mg/dL (0.2-1.3) 06/26/19 04:54 Direct Bilirubin 0.1 mg/dL (0.0-0.4) 06/26/19 04:54 Neonat Total Bilirubin Not Reportable 06/26/19 04:54 Neonat Direct Bilirubin Not Reportable 06/26/19 04:54 Neonat Indirect Bili Not Reportable 06/26/19 04:54 AST 18 U/L (17-59) 06/26/19 04:54 ALT 15 U/L (<50) 06/26/19 04:54 Alkaline Phosphatase 84 U/L (38-126) 06/26/19 04:54 Total Protein 6.1 g/dL (6.3-8.2) L 06/26/19 04:54 Albumin 3.1 g/dL (3.5-5.0) L 06/26/19 04:54 Triglycerides 131 mg/dL (<150) 06/25/19 05:57 Cholesterol 137.58 mg/dL (0-200) 06/25/19 05:57 LDL Cholesterol Direct 89 mg/dL (<100) 06/25/19 05:57 VLDL Cholesterol 26.0 mg/dL (10-31) 06/25/19 05:57 HDL Cholesterol 32 mg/dL (>40) L 06/25/19 05:57 TSH 1.03 uIU/mL (0.47-4.68) 06/25/19 05:57 Urine Color ORANGE 06/26/19 10:05 Urine Appearance CLEAR 06/26/19 10:05 Urine pH 5.0 (5.0-9.0) 06/26/19 10:05 Ur Specific [place] 1.017 06/26/19 10:05 Urine Protein NEGATIVE mg/dL (NEGATIVE) 06/26/19 10:05 Urine Glucose (UA) 150 mg/dL (NEGATIVE) H 06/26/19 10:05 Urine Ketones NEGATIVE mg/dL (NEGATIVE) 06/26/19 10:05 Urine Blood SMALL (NEGATIVE) H 06/26/19 10:05 Urine Nitrite POSITIVE (NEGATIVE) H 06/26/19 10:05 Urine Bilirubin NEGATIVE (NEGATIVE) 06/26/19 10:05 Urine Urobilinogen 4.0 mg/dL (<2.0) H 06/26/19 10:05 Ur Leukocyte Esterase NEGATIVE (NEGATIVE) 06/26/19 10:05 Urine WBC (Auto) 13 /HPF 06/26/19 10:05 Urine RBC (Auto) 1 /HPF 06/26/19 10:05 Urine Bacteria (Auto) 3+ /HPF 06/24/19 18:50 Urine Mucus (Auto) RARE /LPF 06/26/19 10:05 Urine Ascorbic Acid NEGATIVE (NEGATIVE) 06/26/19 10:05 Impressions: Renal Ultrasound 06/25/19 00:00 IMPRESSION: 1. NORMAL RENAL ULTRASOUND. Stroke Is this a Stroke Patient?: No Acute Heart Failure - Is this a Heart Failure Patient?: No
== END 2019-06-26 13:55 | disposition home or self-care (01) | DRG 690 ==
LOC: ER 15:57 → EH 19:55 → OBSVTOIN 20:40 → 5 23:10
PROVIDERS: ADMIT Emergency Medicine; ATTEND Emergency Medicine
DX: N39.0 Urinary tract infection, site not specified (principal); R65.10 Systemic inflammatory response syndrome (SIRS) of non-infectious origin without acute organ dysfunction; I48.11 Longstanding persistent atrial fibrillation; D64.9 Anemia, unspecified; B96.20 Unspecified Escherichia coli [E. coli] as the cause of diseases classified elsewhere; E11.9 Type 2 diabetes mellitus without complications; I10 Essential (primary) hypertension; E66.9 Obesity, unspecified; J44.9 Chronic obstructive pulmonary disease, unspecified; N40.0 Benign prostatic hyperplasia without lower urinary tract symptoms; E78.5 Hyperlipidemia, unspecified; K21.9 Gastro-esophageal reflux disease without esophagitis; M19.90 Unspecified osteoarthritis, unspecified site; F32.9 Major depressive disorder, single episode, unspecified; F14.90 Cocaine use, unspecified, uncomplicated; F12.90 Cannabis use, unspecified, uncomplicated; R31.9 Hematuria, unspecified; Z68.34 Body mass index [BMI] 34.0-34.9, adult; Z79.01 Long term (current) use of anticoagulants; Z79.84 Long term (current) use of oral hypoglycemic drugs; Z87.891 Personal history of nicotine dependence; Z88.0 Allergy status to penicillin
CPT/HCPCS: 36415; 76770; 80048; 80053; 80061; 81001; 82803; 83036; 83605; 83735; 84443; 85025; 85027; 85610; 87040; 87086; 87088; 87186; 93005; 93010; 94640; 96365; 99284; J0696; J2300; J2405; J3490; J7120; J7614